=== PATIENT | female | born 1950 | race Caucasian/White ===

== ENCOUNTER 2019-10-07 16:49 | Inpatient (IN) | payer MEDICARE ==
[~2019-10-07] VITALS: Ht 160 cm; Wt 100.7 kg
--- NOTE | ~2019-10-07 | RHP ---
PATIENT: LARISSA SCHREIBER MEDICAL RECORD: [id number] ACCOUNT: [id number] LOCATION:[facility] [id number] : 50 ADMISSION DATE: 10/07/19 REHABILITATION HISTORY AND PHYSICAL EXAMINATION POST ADMISSION PHYSICIAN EXAMINATION ADMITTING DIAGNOSIS: Toxic myopathy. 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 She has been receiving carboplatin and Taxol for a grade III stage III endometrial cancer that was diagnosed in 2019. She is status post total abdominal hysterectomy and bilateral salpingo-oophorectomy prior to receiving chemotherapy. She states that she has not had a very good appetite. She has had some weakness. The patient was noted to have a low blood pressure when she was seen and evaluated in the Emergency Room. She has been treated. She has been placed on a Cardizem drip secondary to uncontrolled atrial fib. Her blood cultures showed gram-positive cocci. She does have a port in place. She has had an echo, which did not show any vegetations. The patient's original plan was to remove the port after the infection cleared; however, secondary to positive cultures this will remain. The patient on 10/01/2019 was noted to be in a normal sinus rhythm on nuclear monitoring technician and she is feeling somewhat better, so the Cardizem has been decreased. Repeat blood cultures have shown no growth. She did develop some pain and swelling in her ankle, but x-rays had been negative. Repeat transesophageal echo showed no valvular vegetations. Previously, she was living alone with family, was independent with ADLs. Currently, she has had prolonged immobility, progressive generalized weakness, especially in her lower extremities affecting her tolerance to PT. She is very fatigued. She has limited flexion and extension. She has got decreased mobility. She is motivated to regain her strength and hopefully return home. COMORBIDITIES: In this patient include weakness, failed chemotherapy, MRSA, knee pain, blood cultures have been positive, atrial fibrillation, rapid ventricular response, adjuvant chemotherapy. PAST MEDICAL HISTORY: Significant for gastroesophageal reflux disease, MRSA. She has had osteoarthritis, grade III stage III endometrial cancer. She got history of atrial fibrillation. PAST SURGICAL HISTORY: Includes back surgery, knee surgery, port placement, total abdominal hysterectomy and bilateral salpingo-oophorectomy. ALLERGIES: No known drug allergies. CURRENT MEDICATIONS: Include Xarelto 10 mg daily, she is on Zofran 4 mg every 4 hours p.r.n., nystatin powder to use as needed, Protonix 40 mg daily, tramadol 100 mg every 6 hours, Cardizem 60 mg every 6 hours p.r.n. and BuSpar 5 mg t.i.d. HABITS: No alcohol or tobacco use. FAMILY HISTORY: Noncontributory. SOCIAL HISTORY: The patient hopes to return back home and get back to her prior level of functioning. HISTORY AND PHYSICAL [id number] ABDOUL,LARISSA Johnson REVIEW OF SYSTEMS: GENERAL: Does complain of weakness. HEENT: Denies cold, cough, or congestion. CARDIOVASCULAR: Denies any chest pain. PHYSICAL EXAMINATION: VITAL SIGNS: Stable, afebrile. GENERAL: A somewhat obese female, in no distress upon exam. HEENT: Normocephalic and atraumatic. Mucosa moist. NECK: Supple. No lymphadenopathy. LUNGS: Clear at this time in upper [place]. HEART: Regular rate and rhythm. No murmurs, rubs, or gallops. ABDOMEN: Soft, benign, nondistended. Positive bowel sounds times 4. EXTREMITIES: No clubbing, cyanosis or edema. She does have some swelling to her ankle. NEUROLOGIC: She does have proximal muscle weakness. LABORATORY DATA: White count is 5.9, H&H of 9.6 and 29.9 and platelet count is 363. Her sodium is 141, potassium 4.1, BUN and creatinine of 17 and 1.7 and blood sugar is noted to be 84. 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 The patient has potential to make improvement. We instituted the following multidisciplinary therapies, including not limited to physical, occupational, respiratory, speech, nutritional services, prosthetics and orthotics. Given her complex medical conditions and risks for more complications, rehabilitation services cannot be provided at a low level of care such as senior care facility. PLAN: 1. Admit to [facility] for inpatient therapy to include the following disciplines; A. Physical therapy to improve gait, all transfer skills and bed mobility to a modified independent level. B. Occupational therapy to improve activities of daily living. C. Case management to help with discharge planning and placement options. D. Nutrition to assist with nutritional needs. E. Rehabilitation nursing to assist in monitoring the patient's underlying medical conditions and to assist with any type of bowel or bladder management. 2. The patient's current medication and medical care will be continued. 3. Placed on standard fall precautions. 4. The patient's estimated length of stay is approximately 7-10 days. 5. We will discuss the patient during care team staff meeting this week. We will go and check a uric acid level on her and we will follow up her ankle pain. TRANSINT:[id number] Voice Confirmation ID: [id number] DOCUMENT ID: [id number] DAO notes whether there has been none or any medical/functional change since admission: - No change since prescreen. DAO attests patient continues to be appropriate for IRF: - Continues to be appropriate. HISTORY AND PHYSICAL [id number] ABDOUL,LARISSA ROA,ELSA FORMAN MD CC: [id number] DICTATION DATE: 10/08/19 1055 PROMOTIONS REPRESENTATIVE: 10/08/19 1305 ADM IN [facility] [address] [id number]
[~2019-10-07 16:49] MED LIST: ALEVE220 MG; MOBIC7.5 MG PO; OMEPRAZOLE20 M1 PO; ULTRAM50 MG PO
--- NOTE | 2019-10-07 20:30 | NUR ---
ADMIT TO [facility] AND SERVICES OF DR ROA. SEE ADMISSION ASSESSMENT. AWAKE AND ALERT. STATES SHE HAD UTERINE CANCER WITH CHEMO DONE. STATES HE LEGS ARE SWOLLEN AND FEET HURT. MILD SWELLING NOTED TO BILATERAL FEET. ALERT AND ORIENTED WITH REPORTS OF MILD CONFUSION. ORIENTED IN USE OF CALL LIGHT. SALINE LOCK INTACT TO LEFT HAND WITH NO SIGNS OF INFILTRATION. NO ACUTE DISTRESS NOTED.
[2019-10-07 23:20] VITALS: BP 129/55; BMI 39.4
--- NOTE | 2019-10-08 02:02 | NUR ---
SLEEPING WITH RESPIRATIONS UNLABORED. NO DISTRESS NOTED.
--- NOTE | 2019-10-08 05:52 | NUR ---
QUIET HOURS. NO ACUTE CHANGES IN CONDITION THIS SHIFT. RESTING IN BED WITH NO DISTRESS NOTED.
[2019-10-08 06:59] LABS: BASOPHILS 0.5 % (0-2); EOSINOPHILS 2.7 % (0-7); HEMATOCRIT 29.9 % (36.0-48.0); HEMOGLOBIN 9.6 g/dL (12-16); IMMATURE GRANULOCYTES 0.5 % (0-5); LYMPHOCYTES 31.8 % (15-50); MCH 28.5 pg (26.0-34.0); MCHC 32.1 g/dL (31.0-37.0); MCV 88.7 fL (80.0-100.0); MEAN PLATELET VOLUME 8.4 fL (7.4-10.4); MONOCYTES 8.3 % (2-11); NEUTROPHILS 56.2 % (40-80); PLATELET COUNT 363 10x3/uL (130-400); RBC 3.37 10x6/uL (4.00-5.40); RDW 15.6 % (11.5-14.5); WBC 5.9 10x3/uL (4.8-10.8)
[2019-10-08 07:37] LABS: ANION GAP 13.3 mmol/L (8-16); CALCIUM 7.9 mg/dL (8.5-10.1); CARBON DIOXIDE 28.8 mmol/L (21.0-32.0); CREATININE - SERUM 1.7 mg/dL (0.6-1.3); POTASSIUM - SERUM 4.1 mmol/L (3.5-5.1)
[2019-10-08 10:11] VITALS: Ht 160 cm; Wt 100.7 kg
--- NOTE | 2019-10-08 10:33 | NUR ---
PT RESTING IN BED WITH EYES OPEN CALL LIGHT IN REACH NO PROBLEMS WILL MONITER
[2019-10-08 14:35] VITALS: BP 138/73
--- NOTE | 2019-10-08 17:20 | NUR ---
PT RESTING IN BED WITH EYES OPEN CALL LIGHT IN REACH WILL MONITER
[2019-10-08 20:00] VITALS: BP 127/64
--- NOTE | 2019-10-09 02:07 | NUR ---
SLEEPING WITH NO DISTRESS NOTED.
--- NOTE | 2019-10-09 05:01 | NUR ---
QUIET HOURS. NO ACUTE CHANGES IN CONDITION THIS SHIFT. RESTING IN BED WITH NO DISTRESS NOTED.
--- NOTE | 2019-10-09 08:00 | NUR ---
PT RESTING IN BED WITH EYES OPEN CALL LIGHT IN REACH WILL MONITER
--- NOTE | 2019-10-09 18:04 | NUR ---
PT RESTING IN BED WITH EYES OPEN CALL LIGHT IN REACH NO PROBLEMS WILL MONITER
[2019-10-09 20:00] VITALS: BP 151/62
--- NOTE | 2019-10-09 20:00 | NUR ---
AWAKE AND ALERT. RESTING IN BED WITH RESPIRATIONS UNLABORED. IN CONTACT ISOLATION RELATED TO MRSA IN BLOOD. NOTED REDNESS AND SWELLING IN RIGHT FOOT. RIGHT FOOT ELEVATED ON PILLOW. NO ACUTE DISTRESS NOTED. CALL LIGHT IN REACH.
--- NOTE | 2019-10-10 03:23 | NUR ---
SLEEPING WITH RESPIRATIONS UNLABORED. NO DISTRESS NOTED.
[2019-10-10] MEDS ORDERED: BUSPAR5 MG PO (06:11)
[2019-10-10] MEDS ORDERED: CARDIZEM60 MG PO (06:12)
[2019-10-10] MEDS ORDERED: XARELTO10 MG PO (06:15)
[2019-10-10 07:07] LABS: BASOPHILS 0.6 % (0-2); EOSINOPHILS 2.8 % (0-7); HEMATOCRIT 29.8 % (36.0-48.0); HEMOGLOBIN 9.2 g/dL (12-16); IMMATURE GRANULOCYTES 0.4 % (0-5); LYMPHOCYTES 40.1 % (15-50); MCH 27.9 pg (26.0-34.0); MCHC 30.9 g/dL (31.0-37.0); MCV 90.3 fL (80.0-100.0); MEAN PLATELET VOLUME 8.5 fL (7.4-10.4); MONOCYTES 9.4 % (2-11); NEUTROPHILS 46.7 % (40-80); PLATELET COUNT 404 10x3/uL (130-400); RDW 15.5 % (11.5-14.5); WBC 5.1 10x3/uL (4.8-10.8)
[2019-10-10 07:28] LABS: ANION GAP 12.6 mmol/L (8-16); CALCIUM 8.2 mg/dL (8.5-10.1); CARBON DIOXIDE 28.8 mmol/L (21.0-32.0); CREATININE - SERUM 1.9 mg/dL (0.6-1.3); POTASSIUM - SERUM 4.4 mmol/L (3.5-5.1); URIC ACID 4.4 mg/dL (2.6-7.2)
--- NOTE | 2019-10-10 08:00 | NUR ---
SITTING UP IN BED EATING BREAKFAST, DENIES ANY NEEDS AT THIS TIME, C/L AND FLUIDS IN REACH.
[2019-10-10 08:37] VITALS: BP 132/56
--- NOTE | 2019-10-10 09:31 | NUR ---
PATIENT ADMITTED TO REHAB FROM [facility]. DISCHARGE PLANS ARE FOR PATIENT TO RETURN HOME WITH HER FAMILY. DME AT HOME IS A WALKER. WILL CONTINUE TO FOLLOW WITH PATIENT.
--- NOTE | 2019-10-10 12:00 | NUR ---
SITTING UP IN BED VISITING WITH FRIEND, DENIES ANY NEEDS AT THIS TIME, C/L AND FLUIDS IN REACH.
--- NOTE | 2019-10-10 12:53 | NUR ---
I have reviewed this patient and I concur with the Shift Assessment completed by the Licensed Practical Nurse today this shift.
--- NOTE | 2019-10-10 16:12 | NUR ---
RESTING IN BED TALKING WITH SPEECH THERAPY, DENIES ANY NEEDS AT THIS TIME, C/L AND FLUIDS IN REACH.
--- NOTE | 2019-10-10 16:57 | NUR ---
SALINE LOCK IV TO LEFT FOREARM VIA CHALO/CENTRAL LINE NURSE. PATIENT TO START ROUNDS OF VANCOMYCIN FOR MRSA IN THE BLOOD PER ORDERS FROM DR. ROA.
--- NOTE | 2019-10-10 19:14 | NUR ---
RECEIVED PT LYING IN BED AWAKE. ALERT AND ORIENTED X4. DENIES ANY NEEDS OR PAIN. NO SIGNS OF ACUTE DISTRESS NOTED. SHIFT ASSESSMENT COMPLETE. LEFT FOREARM IV SALINE LOCKED WITHOUT REDNESS OR SWELLING. CALL LIGHT WITHIN REACH. FALL PRECAUTIONS IN PLACE. CPOC
[2019-10-10 20:04] VITALS: BP 128/64
--- NOTE | 2019-10-11 00:24 | NUR ---
PT LYING IN BED EYES CLOSED RESTING. RR EVEN AND UNLABORED. CALL LIGHT WITHIN REACH. FALL PRECAUTIONS IN PLACE. CPOC
--- NOTE | 2019-10-11 02:09 | NUR ---
PT LYING IN BED ON LEFT SIDE EYES CLOSED RESTING. RR EVEN AND UNLABORED. CALL LIGHT WITHIN REACH. FALL PRECAUTIONS IN PLACE. CPOC
--- NOTE | 2019-10-11 03:05 | NUR ---
PT REQUEST BEDPAN PLACED ON BEDPAN 200 CLEAR YELLOW URINE OUTPUT. PROVIDED PERICARE. BUTTPASTE APPLIED TO BUTTOCKS. REPOSITIONED TO RIGHT SIDE. PT REQUESTS PAIN MEDICATION FOR BLE AND LOWER BACK PAIN. WILL ADMINISTERED ULTRAM 100MG PER ORDER. NO OTHER NEEDS VOICED. CALL LIGHT WITHIN REACH. FALL PRECAUTIONS IN PLACE. CPOC
--- NOTE | 2019-10-11 05:24 | NUR ---
PT LYING IN BED ON LEFT SIDE EYES CLOSED RESTING. NO ACUTE CHANGES IN CONDITION NOTED THIS SHIFT. CALL LIGHT WITHIN REACH. FALL PRECAUTIONS IN PLACE. CPOC
[2019-10-11 08:00] VITALS: BP 118/62
--- NOTE | 2019-10-11 08:09 | NUR ---
SITTING UP IN BED EATING BREAKFAST, DENIES ANY NEEDS AT THIS TIME, C/L AND FLUIDS IN REACH.
--- NOTE | 2019-10-11 12:23 | NUR ---
SITTING UP IN W/C EATING LUNCH, DENIES ANY NEEDS AT THIS TIME, C/L AND FLUIDS IN REACH.
--- NOTE | 2019-10-11 16:00 | NUR ---
RESTING IN BED WITH EYES CLOSED, NO S/S OF DISTRESS NOTED, C/L AND FLUIDS IN REACH.
[2019-10-11 19:26] VITALS: BP 128/58
--- NOTE | 2019-10-11 20:06 | NUR ---
PT ASLEEP, AROUSES EASILY TO VOICE, RESPIRATIONS EVEN/UNLABORED, NO IMMEDIATE NEEDS NOTED, FALL PRECAUTIONS IN PLACE, FLUIDS/CALL LIGHT WITHIN REACH
--- NOTE | 2019-10-11 23:27 | NUR ---
PT IV CAME OUT CATH TIP INTACT, PRESSURE DRSG APPLIED, PT ON BLOOD THINNERS, NEW IV INRIGHT HAND 22G 1ST STICK, VANC RUNNING, IV PATENT, DRSG ADHERED TO SKIN
[2019-10-12 07:15] LABS: BASOPHILS 0.6 % (0-2); EOSINOPHILS 5.3 % (0-7); HEMOGLOBIN 9.4 g/dL (12-16); IMMATURE GRANULOCYTES 0.4 % (0-5); MCHC 31.3 g/dL (31.0-37.0); MCV 89.3 fL (80.0-100.0); MEAN PLATELET VOLUME 8.5 fL (7.4-10.4); MONOCYTES 11.4 % (2-11); NEUTROPHILS 45.3 % (40-80); PLATELET COUNT 357 10x3/uL (130-400); RBC 3.36 10x6/uL (4.00-5.40); RDW 15.4 % (11.5-14.5); WBC 4.7 10x3/uL (4.8-10.8)
[2019-10-12 07:55] LABS: ANION GAP 10.4 mmol/L (8-16); CALCIUM 8.2 mg/dL (8.5-10.1); CARBON DIOXIDE 28.4 mmol/L (21.0-32.0); CREATININE - SERUM 2.3 mg/dL (0.6-1.3); POTASSIUM - SERUM 3.8 mmol/L (3.5-5.1)
--- NOTE | 2019-10-12 08:02 | NUR ---
SITTING UP IN BED EATING BREAKFAST, DENIES ANY NEEDS AT THIS TIME, C/L AND FLUIDS IN REACH.
[2019-10-12 08:27] VITALS: BP 129/53
--- NOTE | 2019-10-12 13:00 | NUR ---
UP IN W/C WITH THERAPY, DENIES ANY NEEDS AT THIS TIME.
--- NOTE | 2019-10-12 16:07 | NUR ---
RESTING IN CHAIR WITH EYES CLOSED, NO S/S OF DISTRESS NOTED, C/L AND FLUIDS IN REACH.
[2019-10-12 19:06] VITALS: BP 136/67
--- NOTE | 2019-10-12 19:36 | NUR ---
ASLEEP,AROUSES EASILY TO VOICE, NO NEEDS NOTED, RESPIRATIONS EVEN/UNLABORED, FALL PRECAUTIONS IN PLACE, FLUIDS/CALL LIGHT WITHIN REACH
--- NOTE | 2019-10-13 00:18 | NUR ---
PT ASLEEP,AROUSES EASILY TO VOICE, RESPIRATIONS SLOW AND EASY, NO IMMEDIATE NEEDS NOTED, FALL PRECAUTIONS IN PLACE, FLUIDS/CALL LIGHT WITHIN REACH
--- NOTE | 2019-10-13 08:00 | NUR ---
PT RESTING IN BED WITH EYES OPEN CALL LIGHT IN REACH WILL MONITER
[2019-10-13 10:01] VITALS: BP 135/60
[2019-10-13 10:25] LABS: CREATININE - SERUM 2.2 mg/dL (0.6-1.3)
--- NOTE | 2019-10-13 13:42 | NUR ---
NUTRITION FOLLOW UP: COMMENTS: Patient has been eating poorly the last 9 meals. Added Ensure with meals to help provide extra nutrients. Patient has not had a BM recorded since admit. DIET: AHA Cardiac Diet SUPPLEMENT: Ensure with Meals PO INTAKE: 36% avg for last 9 meals BM: None since admit WEIGHT: 222 lbs on 10/07 SIG LABS: Na-134(L), Cr-2.2(H), Ca-8.2(L) SIG MEDS: Zofran, Miralax, Nystatin, Protonix Recommendations: -Continue current diet as tolerated -Continue Ensure TID as tolerated -Continue stool softeners or laxatives RD to continue to follow and monitor patient DHS
--- NOTE | 2019-10-13 15:36 | NUR ---
CLINICAL UPDATES FAXED TO RAOUL AT [facility], , AUTH. # [id number] WITH FAX CONFORMATION RECIEVED. WILL CONTINUE TO FOLLOW WITH PATIENT
--- NOTE | 2019-10-13 15:45 | NUR ---
PT RESTING IN BED WITH EYES OPEN CALL LIGHT IN REACH WILL MONITER
--- NOTE | 2019-10-13 20:09 | NUR ---
PT HAD LOOSE STOOL, LIGHT BROWN, EXTREMELY SOFT, HAD TWO SMALL STOOLS DURING SHOWER THAT HAD TO BE GIVEN RIGHT AFTER SHIFT REPORT, PT BACK IN BED CLEAN GOWN AND BED LINENS, BARBRA APPLIED, NO OTHER NEEDS NOTED, FALL PRECAUTIONS IN PLACE, FLUIDS/CALL LIGHT WITHIN REACH
[2019-10-13 21:40] VITALS: BP 121/65
[2019-10-14 06:14] LABS: BASOPHILS 0.7 % (0-2); EOSINOPHILS 5.4 % (0-7); HEMATOCRIT 28.8 % (36.0-48.0); HEMOGLOBIN 9.1 g/dL (12-16); IMMATURE GRANULOCYTES 0.6 % (0-5); LYMPHOCYTES 36.5 % (15-50); MCH 28.4 pg (26.0-34.0); MCHC 31.6 g/dL (31.0-37.0); MEAN PLATELET VOLUME 8.5 fL (7.4-10.4); MONOCYTES 12.4 % (2-11); NEUTROPHILS 44.4 % (40-80); PLATELET COUNT 357 10x3/uL (130-400); RDW 15.5 % (11.5-14.5); WBC 5.4 10x3/uL (4.8-10.8)
[2019-10-14 06:37] LABS: ANION GAP 8.6 mmol/L (8-16); CALCIUM 8.5 mg/dL (8.5-10.1); CARBON DIOXIDE 29.3 mmol/L (21.0-32.0); CREATININE - SERUM 2.2 mg/dL (0.6-1.3); POTASSIUM - SERUM 3.9 mmol/L (3.5-5.1); VANCOMYCIN - RANDOM 22.7 ug/mL (10.0-20.0)
--- NOTE | 2019-10-14 07:16 | NUR ---
PT RESTING IN BED WITH EYES OPEN CALL LIGHT IN REACH WILL MONITER
[2019-10-14 20:00] VITALS: BP 141/61
--- NOTE | 2019-10-14 20:00 | NUR ---
RECEIVED IN BED WITH EYES OPEN WATCHING TV. AWAKE AND ALERT. DENIES ANY NEEDS AT TIS TIME. PROVIDED PRESCRIBED MEDICATIONS. MONITOR FOR SAFETY. CALL LIGHT IN REACH. CONTINUE PLAN OF CARE.
--- NOTE | 2019-10-14 20:00 | NUR ---
RECEIVED LYING IN BED WITH EYES OPEN. AWAKE AND ALERT X 4. DENIES ANY NEEDS AT THIS TIME. SAYS HER LEGS ARE RESTLESS LEG SYNDROME. MEDICATION GIVEN IN HS MEDICATIONMS. MONITOR FOR SAFETY. CONTINUE PLAN OF CARE.
--- NOTE | 2019-10-15 03:55 | NUR ---
PATIENT EYES CLOSED. RESPIRATIONS 18 & EVEN. BED LOW. ALARM ON. CALL LIGHT WITHIN REACH. WILL CONTINUE TO MONITOR.
[2019-10-15 05:03] VITALS: BP 134/68
[2019-10-15 06:59] LABS: CREATININE - SERUM 2.3 mg/dL (0.6-1.3); VANCOMYCIN - RANDOM 17.2 ug/mL (10.0-20.0)
--- NOTE | 2019-10-15 08:00 | NUR ---
SITTING UP IN BED EATING BREAKFAST, DENIES ANY NEEDS AT THIS TIME, C/L AND FLUIDS IN REACH.
[2019-10-15 08:37] VITALS: BP 108/45
--- NOTE | 2019-10-15 10:31 | NUR ---
I have reviewed this patient and I concur with the Shift Assessment completed by the Licensed Practical Nurse today this shift.
--- NOTE | 2019-10-15 11:56 | NUR ---
RESTING IN BED WITH EYES CLOSED, NO S/S OF DISTRESS NOTED, RESP EVEN AND UNLABORED, C/L AND FLUIDS IN REACH.
--- NOTE | 2019-10-15 16:05 | NUR ---
RESTING IN BED WITH EYES CLOSED, NO S/S OF DISTRESS NOTED, RESP EVEN AND UNLABORED, C/L AND FLUIDS IN REACH.
[2019-10-15 20:00] VITALS: BP 139/64
--- NOTE | 2019-10-15 20:11 | NUR ---
ULTRAM 50 MG PO X 2 TABS GIVEN FOR LEVEL#6 PAIN IN BACK AND HIPS.
--- NOTE | 2019-10-16 04:38 | NUR ---
RECEIVED RESTING IN BED WATCHING TV. NO S/S OF DISTRESS NOTED. RESP EVEN AND UNLABORED. C/L IN EASY REACH. CONTINUE POC.
[2019-10-16 06:53] LABS: CREATININE - SERUM 2.2 mg/dL (0.6-1.3); VANCOMYCIN - RANDOM 12.3 ug/mL (10.0-20.0)
--- NOTE | 2019-10-16 07:00 | NUR ---
RECEIVED REPORT, ASSUMED CARE, PT SLEEPING, BREATHING EVEN UNLABORED, NO S/S OF DISTRESS NOTED, CALL LIGHT IN REACH, BED ALARM ON, BED LOWEST POSITION, WILL CONTINUE POC
[2019-10-16 08:00] VITALS: BP 153/91
--- NOTE | 2019-10-16 16:52 | NUR ---
I have reviewed this patient and I concur with the Shift Assessment completed by the Licensed Practical Nurse today this shift.
[2019-10-16 20:21] VITALS: BP 138/59
[2019-10-17 06:21] LABS: BASOPHILS 1.3 % (0-2); EOSINOPHILS 7.2 % (0-7); HEMATOCRIT 31.1 % (36.0-48.0); HEMOGLOBIN 9.6 g/dL (12-16); IMMATURE GRANULOCYTES 0.7 % (0-5); LYMPHOCYTES 32.2 % (15-50); MCH 27.9 pg (26.0-34.0); MCHC 30.9 g/dL (31.0-37.0); MCV 90.4 fL (80.0-100.0); MEAN PLATELET VOLUME 8.3 fL (7.4-10.4); MONOCYTES 10.9 % (2-11); NEUTROPHILS 47.7 % (40-80); PLATELET COUNT 379 10x3/uL (130-400); RBC 3.44 10x6/uL (4.00-5.40); RDW 15.3 % (11.5-14.5); WBC 4.6 10x3/uL (4.8-10.8)
[2019-10-17 06:49] LABS: CALCIUM 8.5 mg/dL (8.5-10.1); CARBON DIOXIDE 26.3 mmol/L (21.0-32.0); CREATININE - SERUM 2.1 mg/dL (0.6-1.3); POTASSIUM - SERUM 4.3 mmol/L (3.5-5.1); VANCOMYCIN - RANDOM 17.4 ug/mL (10.0-20.0)
[2019-10-17 07:39] VITALS: BP 149/69
--- NOTE | 2019-10-17 10:20 | NUR ---
PARTICPATING IN THERAPY. PAIN MED GIVEN.
--- NOTE | 2019-10-17 10:44 | NUR ---
Nutrition Follow-up: Diet: Cardiac + Ensure TID PO intake: ~52% average x last 9 meals. She states that her appetite is "not good." States that she has been having diarrhea and thinks that it is from the Ensure. States that she has not had an Ensure in a few days. She states that she is having diarrhea today. Explained that it is likely not the Ensure causing diarrhea if she has not had an Ensure for a while and is having diarrhea today. She is willing to resume drinking Ensure with meals. Last BM: 10/17/19 - having diarrhea currently. Wt: 222# (10/08/19) Meds noted: megace (started 10/16/19), vancomycin Labs noted: Na 132(L), GFR 25(L), Cr 2.1(H) -Diarrhea is likely 2/2 abx Rx. Consider adding probiotic like lactobacillus/acidophilus. -Recommend continue current diet and oral nutrition supplements. -Encouraged PO intake. -RD following.
--- NOTE | 2019-10-17 15:38 | NUR ---
NO CHANGE IN ASSESSMENT. RESTING WO C/O PAIN. SISTER AT .
[2019-10-17 19:00] VITALS: BP 113/48
--- NOTE | 2019-10-17 19:00 | NUR ---
PT IN BED WATCHING TV,RESPIRATIONS EVEN, NO NEEDS NOTED, FALL PRECAUTIONS IN PLACE, FLUIDS/CALL LIGHT WITHIN REACH
--- NOTE | 2019-10-17 20:00 | NUR ---
PT REQUESTING ZOPHRAN STATES FEELING A LITTLE NAUSEA, WILL CONTINUE TO MONITOR
[2019-10-18 06:02] VITALS: BP 113/48
[2019-10-18 06:23] VITALS: BP 113/48
[2019-10-18 07:01] LABS: CREATININE - SERUM 2.4 mg/dL (0.6-1.3); VANCOMYCIN - RANDOM 24.8 ug/mL (10.0-20.0)
--- NOTE | 2019-10-18 08:00 | NUR ---
PT RESTING IN BED WITH EYES OPEN CALL LIGHT IN REACH WILL MONITER
[2019-10-18] MEDS ORDERED: MEGACE400 MG/10 PO (09:52)
[2019-10-18] MEDS ORDERED: ZOFRAN ODT4 MG/UDTAB PO (09:53)
[2019-10-18] MEDS ORDERED: MOBIC7.5 MG PO ×2 (09:53→09:54)
--- NOTE | 2019-10-18 10:57 | NUR ---
PATIENT DISCHARGING TO HER HOME TODAY WITH FAMILY. PATIENT HAS DECLINED HOME HEALTH AND ANY NEW DME NEEDS AT THIS TIME. DARY SIGNED, IMM SERVED AND EXPLAINED, ONE GIVEN TO PATIENT AND ONE FILED IN CHART. DISCHARGE INSTRUCTIONS FAXED TO [facility] , AUTH. # [id number], AND REVIEWED WITH PATIENT PER PRIMARY NURSE.
[2019-10-18] MEDS ORDERED: ZYVOX600 MG PO (12:40)
--- NOTE | 2019-10-18 13:00 | NUR ---
PT DISCHARGED TO HOME VIA WHEELCHAIR WITH SISTER DISCHARGE MEDS AND SUMMARY REVIEWED WITH PT. PTS MEDS CALLED TO [facility]. TOLERATED WELL
== END 2019-10-18 16:23 | disposition home or self-care (01) | DRG 92 ==
LOC: D.REHAB 16:49
PROVIDERS: ADMIT Emergency Medicine; ATTEND Emergency Medicine
DX: G72.2 Myopathy due to other toxic agents (principal); I48.19 Other persistent atrial fibrillation; C54.1 Malignant neoplasm of endometrium; R53.1 Weakness; K21.9 Gastro-esophageal reflux disease without esophagitis; A49.02 Methicillin resistant Staphylococcus aureus infection, unspecified site; M19.90 Unspecified osteoarthritis, unspecified site; R53.83 Other fatigue; M25.471 Effusion, right ankle; I50.9 Heart failure, unspecified; M17.12 Unilateral primary osteoarthritis, left knee; M51.36 Other intervertebral disc degeneration, lumbar region; R11.10 Vomiting, unspecified; R62.7 Adult failure to thrive; D64.9 Anemia, unspecified